=== PATIENT | male | born 1975 | race Caucasian/White ===

== ENCOUNTER 2020-08-01 16:57 | Outpatient (CLI) | payer MEDICARE, SELFPAY ==
--- NOTE | ~2020-08-01 | MR_ITS ---
EXAMINATION: MR brain/brain stem wo con DATE: 08/01/2020 17:40 INDICATION: Headache. TECHNIQUE: Magnetic resonance imaging (MRI) of the brain and brainstem was performed without intraven ous contrast. Sequences included sagittal and axial T1-weighted FSE, axial diffusion-weighted FS EPI, axial T2*-weighted GRE, and axial T2-weighted FLAIR Propeller. Apparent diffusion coefficient (ADC) maps were created. COMPARISON: None. FINDINGS: Motion artifact is noted. There is no intracranial hemorrhage, acute infarction, or abnorma l intracranial mass lesion. The ventricles are normal in size. The paranasal sinuses are clear. There is a small right mastoid effusion. The orbits are normal. IMPRESSION: 1. Normal brain. Reviewed, dictated and finalized at location A. [employer] IMPRESSION: 1. Normal brain.
== END 2020-08-01 16:58 | disposition home or self-care (01) ==
PROVIDERS: PCP Nurse Practitioner Family; Visit Provider Nurse Practitioner Family
DX: R44.3 Hallucinations, unspecified (principal); R29.6 Repeated falls; R51.9 Headache, unspecified; G89.29 Other chronic pain
CPT/HCPCS: 70551

== ENCOUNTER 2022-08-06 12:46 | Outpatient (CLI) | payer MEDICARE, SELFPAY ==
--- NOTE | 2022-08-07 14:14 | WPDSIXMINUTE ---
Six Minute Walk Procedure Procedure Performed Pulmonary Stress Test (6 min walk) Six Minute Walk Six Minute Walk: This 6 minute walk test was carried out with the patient breathing ambient air. The pre walk oxyhemoglobin saturation was 90%. The patient walked over 243 m with no stops during testing. During the walk the oxyhemoglobin saturation remained 90% or higher. Impression: No evidence of oxyhemoglobin desaturation on this testing.
== END 2022-08-06 12:47 | disposition home or self-care (01) ==
PROVIDERS: PCP Internal Medicine; Visit Provider Nurse Practitioner
DX: R06.09 Other forms of dyspnea (principal)
CPT/HCPCS: 94618

== ENCOUNTER 2022-11-12 17:57 | Emergency (ER) | payer MEDICARE, SELFPAY ==
[2022-11-12 18:10] VITALS: BP 138/62; PULSE 109; RESP 22; TEMP 37.2; O2SAT 93
--- NOTE | 2022-11-12 19:05 | ED.LOWEXIN ---
HPI - Extremity Injury (Lower) General Chief Complaint: Extremity Injury, Lower Stated Complaint: Laceration to Toe Time Seen by Provider: 11/12/22 18:15 Source: patient, family, RN notes reviewed and old records reviewed Mode of arrival: ambulatory Limitations: no limitations History of Present Illness HPI Narrative: 47 year old male who is mentally challenge presents ambulatory with family members of mother and sister with complaints of injury to his left foot today around 3pm when he tripped over a rug at home when he was wearing his slippers and fell in kitchen Mother reports that she noted bleeding from toe and sister applied bandage to area. Patient has swelling to his left foot and laceration to the underside of his 5th toe 3cm length and he also has bruise to the 2nd toe of his right foot. Mother reports that he doesn't complain of pain when he is hurt. Patient is 165kg and is too large for x-ray at our facility.Family is unsure if patient is up to date on Tetanus. MD complaint: foot injury and other (LACERATION TO LEFT 5TH TOE) Onset (ago): day(s) (TODAY AROUND 3 PM) Type of Injury: other (fall) Place: home Treatments prior to arrival: bandage Related Data Home Medications Medication Instructions Recorded Confirmed atorvastatin 40 mg tablet 40 mg PO DAILY 11/12/22 11/12/22 clozapine 100 mg tablet 50 mg PO BID 11/12/22 11/12/22 iloperidone 12 mg tablet (Fanapt) 12 mg PO BID 11/12/22 11/12/22 levomefolate calcium 15 mg tablet 15 mg PO DAILY 11/12/22 11/12/22 (L-Methylfolate) quetiapine 50 mg tablet 50 mg PO DAILY 11/12/22 11/12/22 zolpidem 10 mg tablet 10 mg PO QHS 11/12/22 11/12/22 Allergies Allergy/AdvReac Type Severity Reaction Status Date / Time No Known Allergies Allergy Verified 11/12/22 18:42 Review of Systems Review of Systems: CONSTITUTIONAL: Denies fever, chills, or sweats. EYES: Denies visual changes, redness, or discharge. ENT: Denies rhinorrhea, congestion, sore throat, or otalgia. CARDIOVASCULAR: Denies chest pain, palpitations, or edema. RESPIRATORY: Denies cough or dyspnea. GASTROINTESTINAL: Denies abdominal pain, nausea, vomiting, or diarrhea. GENITOURINARY: Denies dysuria or hematuria. SKIN: Denies rash or itching. MUSCULOSKELETAL: Denies back pain, joint pain, or myalgia. NEUROLOGIC: Denies headache, numbness, or weakness. PSYCHIATRIC: Positive for history of anxiety or depression,mentally challenged and history of hallucinations All systems reviewed & are unremarkable except as noted in HPI and below PMFSH Past Medical History Medical History (Updated 11/13/22 @ 22:38 by Galina Tam NP) Compound fracture History of hallucinations Hyperlipidemia Hypothyroidism Mentally challenged Open right radial fracture and ulna ORIF Scarring of lung Social History Social History (Updated 11/13/22 @ 22:20 by Galina Tam NP) Smoking status: Never smoker Second hand tobacco smoke exposure: No Alcohol intake: never Substance use: never Living arrangements: with family Gender identity (if verbalized by the patient): Male Comments At time of signature, agree with nursing past medical, surgical, social and family history. There is no relevant family history pertinent to the presenting complaint Exam Narrative: GENERAL: Well-appearing, well-nourished, obese and in no acute distress. HEAD: Normocephalic, atraumatic. EYES: PERRLA and EOMI. ENT: Nares clear, no rhinorrhea or epistaxis. Mucous membranes moist. NECK: Supple. no lymphadenopathy noted CHEST: Clear to auscultation. No respiratory distress.SAO2 93% on room air HEART: Regular rate and rhythm. No murmur heard. Normal peripheral pulses. ABDOMEN: Soft, nontender, large rounded, nondistended, normal active bowel sounds. EXTREMITIES: Normal range of motion. No edema.Exception noted to swelling of left foot with laceration 3cm length to base of 5th toe, patient unable to rate pain, no active bleeding noted from wound left
== END 2022-11-12 19:19 | disposition short-term general hospital (02) ==
PROVIDERS: Emergency Provider Registered Nurse; PCP Internal Medicine
DX: S99.922A Unspecified injury of left foot, initial encounter (principal); S91.115A Laceration without foreign body of left lesser toe(s) without damage to nail, initial encounter; W18.09XA Striking against other object with subsequent fall, initial encounter; E78.5 Hyperlipidemia, unspecified; E03.9 Hypothyroidism, unspecified; F79 Unspecified intellectual disabilities
CPT/HCPCS: 99212; G0463